=== PATIENT | female | born 1985 | race Two or more races ===

== ENCOUNTER 2022-08-15 19:40 | Emergency (ER) | payer MEDICAID, OTHER ==
[~2022-08-15] VITALS: Ht 154.9 cm; Wt 54.5 kg
[2022-08-15 19:54] VITALS: BP 130/72
== END 2022-08-16 03:39 | disposition home or self-care (01) ==
LOC: ER 19:45
DX: R22.0 Localized swelling, mass and lump, head (principal); R51.9 Headache, unspecified; F41.9 Anxiety disorder, unspecified; F32.9 Major depressive disorder, single episode, unspecified; F17.210 Nicotine dependence, cigarettes, uncomplicated; Z53.20 Procedure and treatment not carried out because of patient's decision for unspecified reasons; Z59.00 Homelessness unspecified; Y04.2XXA Assault by strike against or bumped into by another person, initial encounter; Y93.89 Activity, other specified; Y92.89 Other specified places as the place of occurrence of the external cause; Y99.8 Other external cause status

== ENCOUNTER 2022-12-02 21:24 | Emergency (ER) | payer MEDICAID ==
[~2022-12-02] VITALS: Ht 160 cm; Wt 52.0 kg
[2022-12-03 03:21] VITALS: BP 105/72
[2022-12-03] MEDS ORDERED: ONDANSETRON ODT 4 MG TAB PO ONE (04:00)
== END 2022-12-03 04:25 | disposition home or self-care (01) ==
LOC: ER 21:24
DX: H61.22 Impacted cerumen, left ear (principal); J06.9 Acute upper respiratory infection, unspecified; F15.10 Other stimulant abuse, uncomplicated; Z59.00 Homelessness unspecified
CPT/HCPCS: 99283; Q0162

== ENCOUNTER 2022-12-03 20:20 | Emergency (ER) | payer MEDICAID ==
[~2022-12-03] VITALS: Ht 162.6 cm; Wt 55.0 kg
[2022-12-03] MEDS ORDERED: OLANZapine 5 MG TAB PO ONE (23:00)
[2022-12-03 23:45] VITALS: BP 124/88
== END 2022-12-03 23:49 | disposition home or self-care (01) ==
LOC: EDBD 20:20 → EDUNIT# 20:20 → ER 20:20
DX: F15.10 Other stimulant abuse, uncomplicated (principal); F29 Unspecified psychosis not due to a substance or known physiological condition; F41.9 Anxiety disorder, unspecified; F20.9 Schizophrenia, unspecified; Z59.00 Homelessness unspecified

== ENCOUNTER 2022-12-05 02:40 | Emergency (ER) | payer MEDICAID ==
[~2022-12-05] VITALS: Ht 160 cm; Wt 52.3 kg
[2022-12-05 07:36] VITALS: BP 107/58
== END 2022-12-05 07:38 | disposition left against medical advice (07) ==
LOC: ER 02:40
DX: R51.9 Headache, unspecified (principal); Z53.21 Procedure and treatment not carried out due to patient leaving prior to being seen by health care provider

== ENCOUNTER 2023-10-22 05:07 | Emergency (ER) | payer MEDICAID, OTHER ==
[~2023-10-22] VITALS: Ht 147.3 cm; Wt 50.0 kg
[2023-10-22 05:11] VITALS: BP 130/76; PULSE 100; RESP 24; O2SAT 96
[2023-10-22] MEDS ORDERED: HYDR-4902 PO (06:25)
== END 2023-10-22 10:51 | disposition left against medical advice (07) ==
LOC: EDBD 05:07 → ER 05:07
DX: R53.83 Other fatigue (principal); F41.9 Anxiety disorder, unspecified; F20.9 Schizophrenia, unspecified; F15.90 Other stimulant use, unspecified, uncomplicated; Z59.00 Homelessness unspecified; Z98.890 Other specified postprocedural states